=== PATIENT | female | born 1985 | race Caucasian/White ===

== ENCOUNTER 2017-02-04 15:16 | Inpatient (IN) | payer MEDICAID ==
[2017-02-04] MEDS ORDERED: HYDROmorphONE/DILAUDID 1 MG/ML SYR ONE (15:22)
--- NOTE | 2017-02-04 15:29 | EDPHY ---
H & P Stated Complaint: abdominal pain Time Seen by Provider: 02/04/17 15:27 HPI/ROS: CHIEF COMPLAINT: abdominal pain HISTORY OF PRESENT ILLNESS: 31-year-old female presents emergency department by EMS sent from [facility]. Patient had onset of worsening lower abdominal pain just after intercourse this morning after she urinated, cramping in nature, she presented to the emergency department, had a CT scan abdomen pelvis with IV contrast showing an abnormality in the right adnexal region with a heterogeneous masslike area measuring up to 3.6cm. There is no ultrasound available at the [facility] so the patient was transferred here via EMS. Patient has an IUD. Patient reports she started 2 days ago with mild lower abdominal pain that increased slightly yesterday and then increased significantly today. No fevers, no diarrhea, no nausea or vomiting. She reports no known history of ovarian cysts. Patient reports a cervical cyst removal and leep procedure in 2004. Patient denies vaginal discharge, no vaginal bleeding, no fevers, no nausea or vomiting, no back pain. REVIEW OF SYSTEMS: A comprehensive 10 point review of systems is otherwise negative aside from elements mentioned in the history of present illness. Source: Patient, RN/MD, EMS - Personal History LMP (Females 10-55): IUD In Place - Physical Exam Exam: Physical Exam Gen: Alert and Oriented, grimacing HEENT: PERRL, moist mucous membranes NECK: no meningismus CV: regular rate and regular rhythm PULM: CTAB, no wheezes ABDOMEN: soft, right sided lower abdominal tenderness to palpation with voluntary guarding. BS present BACK: No CVA tenderness NEURO: Neurologically grossly intact EXTREMITIES: normal appearing SKIN: no rash or break in skin on exposed skin PSYCH: answers questions appropriately. Constitutional: Initial Vital Signs Temperature (C) 36.9 C 02/04/17 15:41 Heart Rate 50 L 02/04/17 15:41 Respiratory Rate 14 02/04/17 15:41 Blood Pressure 96/54 L 02/04/17 15:41 O2 Sat (%) 100 02/04/17 15:41 O2 Delivery Mode Nasal Cannula O2 (L/minute) 2 Allergies/Adverse Reactions: cocoa [chocolate] Allergy (Verified 02/04/17 15:41) Medical Decision Making ED Course/Re-evaluation: Patient presents from [facility] for evaluation for abdominal pain. He had no ultrasound in this facility and CT shows a adnexal mass. Patient presents by ambulance to room 7, she is grimacing and tearful complaining of 9/10 pain. She received 75 mcg of fentanyl in the ambulance and 8 mg of Zofran. Patient in [facility] received a mg of Dilaudid , 30 mg of Toradol. CBC at 8:45 a.m. reveals a hemoglobin of 14.9 and hematocrit of 42.9, platelets of [address]. Chemistry panel is unremarkable and she had a new negative serum qualitative HCG. On arrival to the emergency department a 2nd IV is started, the patient is given Dilaudid for her pain. Her blood pressure continues 90s over 60s with a heart rate in the 50s. Pelvic Ultrasound has been ordered along with a repeat CBC. Repeat hemoglobin is 11.1 with a hematocrit of 31.8. This is down from 14.9 and 42.9. Type and screen has been ordered. 505pm- Dr. Worthington with OBGYN was consulted. She will review the images and come see the patient. Patient continues with a blood pressure in the high 80s over 50s, current heart rate is 55. 525pm- Dr. Worthington at bedside and is going to take the patient to the operating room now. Differential Diagnosis: Diagnosis considered but not limited to ruptured ovarian cyst, appendicitis, tubo-ovarian abscess, ectopic , ovarian torsion. - Data Points Laboratory Results: Laboratory Results 02/04/17 15:30 02/04/17 02/04/17 02/04/17 16:12 16:12 15:39 WBC RBC Hgb Hct MCV MCH MCHC RDW Plt Count MPV Neut % (Auto) Lymph % (Auto) [place] % (Auto) Eos % (Auto) Baso % (Auto) Nucleat RBC Rel Count Absolute Neuts (auto) Absolute Lymphs (auto) Absolute Monos (auto) Absolute Eos (auto) Absolute Basos (auto) Absolute Nucleated RBC Immature Gran % Immature Gran # Urine Color YELLOW Urine Appearance HAZY Urine pH 6.0 (5.0-7.5) Ur Specific [place] > 1.035 H (1.002-1.030) Urine Protein NEGATIVE (NEGATIVE) Urine Ketones TRACE H (NEGATIVE) Urine Blood NEGATIVE (NEGATIVE) Urine Nitrate NEGATIVE (NEGATIVE) Urine Bilirubin NEGATIVE (NEGATIVE) Urine Urobilinogen NEGATIVE EU EU (0.2-1.0) Ur Leukocyte Esterase TRACE H (NEGATIVE) Urine RBC 3-5 /hpf H /hpf (0-3) Urine WBC 3-5 /hpf H /hpf (0-3) Ur Epithelial Cells 2+ /lpf H /lpf (NONE-1+) Urine Bacteria TRACE /hpf H /hpf (NONE SEEN) Urine Mucus TRACE /lpf /lpf (NONE-1+) Ur Culture Indicated? INDICATED H (NI) Urine Glucose NEGATIVE (NEGATIVE) Urine Test Pending Patient ABO/Rh O POSITIVE Antibody Screen NEGATIVE 02/04/17 15:30 WBC 7.88 10^3/uL 10^3/uL (3.80-9.50) RBC 3.48 10^6/uL L 10^6/uL (4.18-5.33) Hgb 11.0 g/dL L g/dL (12.6-16.3) Hct 31.8 % L % (38.0-47.0) MCV 91.4 fL fL (81.5-99.8) MCH 31.6 pg pg (27.9-34.1) MCHC 34.6 g/dL g/dL (32.4-36.7) RDW 12.9 % % (11.5-15.2) Plt Count 189 10^3/uL 10^3/uL (150-400) MPV 10.3 fL fL (8.7-11.7) Neut % (Auto) 72.0 % % (39.3-74.2) Lymph % (Auto) 21.7 % % (15.0-45.0) [place] % (Auto) 4.8 % % (4.5-13.0) Eos % (Auto) 0.9 % % (0.6-7.6) Baso % (Auto) 0.3 % % (0.3-1.7) Nucleat RBC Rel Count 0.0 % % (0.0-0.2) Absolute Neuts (auto) 5.68 10^3/uL 10^3/uL (1.70-6.50) Absolute Lymphs (auto) 1.71 10^3/uL 10^3/uL (1.00-3.00) Absolute Monos (auto) 0.38 10^3/uL 10^3/uL (0.30-0.80) Absolute Eos (auto) 0.07 10^3/uL 10^3/uL (0.03-0.40) Absolute Basos (auto) 0.02 10^3/uL 10^3/uL (0.02-0.10) Absolute Nucleated RBC 0.00 10^3/uL 10^3/uL (0-0.01) Immature Gran % 0.3 % % (0.0-1.1) Immature Gran # 0.02 10^3/uL 10^3/uL (0.00-0.10) Urine Color Urine Appearance Urine pH Ur Specific [place] Urine Protein Urine Ketones Urine Blood Urine Nitrate Urine Bilirubin Urine Urobilinogen Ur Leukocyte Esterase Urine RBC Urine WBC Ur Epithelial Cells Urine Bacteria Urine Mucus Ur Culture Indicated? Urine Glucose Urine Test Patient ABO/Rh Antibody Screen Medications Given: Discontinued Medications Hydromorphone HCl (Dilaudid) 0.5 mg IVP EDNOW ONE Stop: 02/04/17 15:46 Last Admin: 02/04/17 15:45 Dose: 0.5 mg Hydromorphone HCl (Dilaudid) 0.5 mg IVP EDNOW ONE Stop: 02/04/17 16:01 Last Admin: 02/04/17 16:44 Dose: 0.5 mg Departure - Departure Disposition: To OP Cath/Surgery Clinical Impression: Hemorrhagic ovarian cyst Condition: Fair Referrals: Patient,NotPresent [Unknown] - As per Instructions
[2017-02-04] MEDS ORDERED: HYDROmorphONE/DILAUDID 1 MG/ML SYR IVP ONE ×2 (15:45→16:00)
[2017-02-04 16:11] LABS: % IMMATURE GRANULYOCYTES 0.3 % (0.0-1.1); ABSOLUTE IMMATURE GRANULOCYTES 0.02 10^3/uL (0.00-0.10); ADD DIFF? NO; ADD MORPH? NO; ADD SCAN? NO; ATYPICAL LYMPHOCYTE FLAG 0 (0-99); FRAGMENT RBC FLAG 0 (0-99); HEMATOCRIT 31.8 % (38.0-47.0); LEFT SHIFT FLG 0 (0-99); LIPEMIA HEMOLYSIS FLAG 90 (0-99); MEAN CELL HEMOGLOBIN 31.6 pg (27.9-34.1); MEAN CELL HEMOGLOBIN CONCENTR. 34.6 g/dL (32.4-36.7); MEAN CELL VOLUME 91.4 fL (81.5-99.8); MEAN PLATELET VOLUME 10.3 fL (8.7-11.7); PLATELET CLUMPS FLAG 0 (0-99); PLATELET COUNT 189 10^3/uL (150-400); RED BLOOD CELL COUNT 3.48 10^6/uL (4.18-5.33); RED CELL DISTRIBUTION WIDTH 12.9 % (11.5-15.2)
[2017-02-04 16:21] LABS: COLOR YELLOW; LEUKOCYTE ESTERASE,URINE TRACE (NEGATIVE); NITRITE,URINE NEGATIVE (NEGATIVE)
[2017-02-04 16:34] LABS: BACTERIA TRACE /hpf (NONE SEEN); MUCUS TRACE /lpf (NONE-1+)
--- NOTE | 2017-02-04 17:37 | PDCONSULT ---
Barrel Raiser Helper Note: Consult: ED Reason for consult: Ruptured hemorrhagic ovarian cyst HPI: Pt is a healthy 31 yo ( x 5) who was transferred from [place] with abdominal pain and free fluid seen on CT scan concerning for ruptured cyst. She had some abdominal discomfort the last 2 days, then had intercourse this morning about 0730, went to the bathroom afterwards and was doubled over in pain. Has continued to get worse and worse throughout the day. She is very nauseated. In the ED here she had an US that shows free fluid in the the pelvis and a possible right ovarian cyst. Her initial Hgb was 14 but has dropped to 11 on repeat check. Her initial BP was in the 110s/90s, but has dropped to 90s/60s and now 80s/60. Her pulse is in the 50s. She has received 2 liters IVF. She states she gets her menses about every other month. A test today was negative. She has paragard IUD PMH: None PSH: LEEP for "cervical cancer" and vaginal cyst removal. No abdominal surgeries [employer] Member: x 5. Denies h/o PID Meds: None All: cocoa Soc: MJ use, no tob or alcohol FH: non contributory Vitals: Pulse = 50, BP 88/60 Gen: discomfort, writhing in bed Resp: taking shallow breaths CV: bradycardia Abd: slightly distended, very TTP with gentle palpation throughout abdomen, + rebound/guarding Ext: no edema US: Transvaginal imaging: The ovaries are normal size with small peripheral follicles and normal blood flow on color Doppler imaging. Several dominant follicles are present in the right ovary. No ovarian cyst. The right ovary measures 4.0 x 3.6 x 3.3 cm. The left ovary measures 3.6 x 2.0 x 1.7 cm. The uterus has normal homogeneous myometrium. A T-shaped intrauterine device is well positioned high within the endometrial cavity. Endometrial lining is normal thickness (0.8 cm). No uterine leiomyomas. Small volume of free fluid in the pelvis anterior and posterior to the uterus has mobile internal echoes suggestive of hemoperitoneum. Amorphous soft tissue posterior to the uterus has no internal blood flow and likely represents small element of organized clot. Impression: 1. Small volume hemoperitoneum and probable clot in the cul-de-sac. Suspect ruptured ovarian follicle as source of blood. 2. No ovarian cyst or evidence of torsion. 3. Well positioned intrauterine device. A/P: Likely ruptured hemorrhagic ovarian cyst. No e/o infection, torsion, ectopic , PID. Her US does not show a large amount of free fluid, but given the fact her BP is dropping and she has a surgical abdomen on exam recommend to proceed with diagnostic laparoscopy and possible right ovarian cystectomy vs oophorectomy. Also discussed observation but she prefers to proceed with diagnostic laparoscopy given her level of discomfort. Reviewed risks including pain, infection, bleeding, transfusion, injury to other organs, needs for additional surgeries. She agrees to proceed. Consents signed. Has been NPO since last night T&S completed No abx indicated OR and anesthesia aware Home vs admit after procedure depending on her pain control Ena Worthington MD Comparative Sociology Professor [facility]
[2017-02-04] MEDS ORDERED: MIDAZOLAM 2 MG/2 ML VIAL ONE (17:44)
[2017-02-04] MEDS ORDERED: REMIFENTANIL HCL 1 MG VIAL ONE (17:50)
[2017-02-04] MEDS ORDERED: PROPOFOL/EMULSION 500 MG/50 ML BOTTLE IV ONE (17:50)
[2017-02-04] MEDS ORDERED: LIDOCAINE HCL 160 MG/4 ML LTA KIT TP ONE (17:51)
[2017-02-04] MEDS ORDERED: SKIN ADHESIVE (DERMABOND) 1 EACH TP ONE (17:51)
[2017-02-04] MEDS ORDERED: ROCURONIUM 50 MG/5 ML VIAL ONE (17:51)
[2017-02-04] MEDS ORDERED: ONDANSETRON 4 MG/2 ML VIAL ONE ×2 (17:51→19:30)
[2017-02-04] MEDS ORDERED: LIDOCAINE 2% 100 MG/5 ML SYR ONE (17:51)
[2017-02-04] MEDS ORDERED: DEXAMETHASONE 4 MG/ML VIAL ONE (17:51)
[2017-02-04] MEDS ORDERED: BUPIVACAINE 0.25% 30 ML SDV ONE (17:52)
[2017-02-04] MEDS ORDERED: LR 1,000 ML IV SCH ×2 (18:00→20:00)
[2017-02-04] MEDS ORDERED: epHEDrine SULFATE 10 MG/ML SYR ONE ×2 (18:18)
[2017-02-04] MEDS ORDERED: SURGIFLO MATRIX KIT WITH THROMBIN TP ONE (18:54)
[2017-02-04] MEDS ORDERED: hydrALAZINE 20 MG/ML VIAL ONE (19:04)
[2017-02-04] MEDS ORDERED: SUGAMMADEX SODIUM 200 MG/2 ML VIAL IVP ONE (19:05)
[2017-02-04] MEDS ORDERED: fentaNYL 100 MCG/2 ML INJ ONE (19:25)
[2017-02-04] MEDS ORDERED: ONDANSETRON 4 MG/2 ML VIAL IVP PRN (19:36)
[2017-02-04] MEDS ORDERED: IBUPROFEN 600 MG TAB PO PRN (19:36)
[2017-02-04] MEDS ORDERED: KETOROLAC 30 MG/1 ML SDV ONE (19:40)
[2017-02-04] MEDS ORDERED: KETOROLAC 30 MG/1 ML SDV IVP ONE (19:40)
--- NOTE | 2017-02-04 19:52 | GOP ---
[f rep st] OPERATIVE REPORT DATE OF OPERATION: 02/04/2017 SURGEON: Ena Worthington MD Duck Bill Operator: Keyona Doty RN ANESTHESIA: General with ET tube. ANESTHESIOLOGIST: Dion Estrada MD. PREOPERATIVE DIAGNOSIS: Ruptured hemorrhagic right ovarian cyst. POSTOPERATIVE DIAGNOSIS: Ruptured hemorrhagic right ovarian cyst. PROCEDURE PERFORMED: 1. Diagnostic laparoscopy. 2. Removal of hemoperitoneum. 3. Right ovarian cystectomy. FINDINGS: Approximately 150 mL of blood in the cul-de-sac and pelvis which was evacuated. A small right cyst on the right ovary that appeared physiologic that had ongoing oozing of bright-red blood. SPECIMENS: Right ovarian cyst wall. ESTIMATED BLOOD LOSS: Minimal. INDICATIONS: The patient is a 31-year-old G5, P5-0-0-5 who had sudden sharp lower abdominal pain this morning after intercourse. She was initially seen in [place] emergency room and had a CT scan that demonstrated a likely right ovarian cyst and also free fluid in the pelvis. Her hemoglobin at that time was 14. She was transferred to [facility] Emergency Room. She had a pelvic ultrasound which showed ongoing free fluid in the pelvis , and her hemoglobin dropped to 11, and her blood pressure dropped to 80s over 50s, and she was in significant pain so the decision was made to go back and proceed with diagnostic laparoscopy for presumed ruptured hemorrhagic cyst. DESCRIPTION OF PROCEDURE: The patient was brought to the operating room, and a time-out was performed. General anesthesia with ET tube was induced without complication. She was prepped and draped in the normal sterile fashion in dorsal lithotomy with Drew stirrups and with arms tucked. A Choudhury catheter was placed. The umbilicus was injected with 5 mL of 0.25% Marcaine. A 5 mm incision was made with a scalpel. The skin was lifted, and the Veress needle was inserted. The opening pressure was 2 mmHg. The abdomen was then insufflated to 15 mmHg. The 5 mm 0 degree laparoscope was placed. The above findings were noted. Two additional 5 mm ports were placed in the right and left lower quadrants respectively after injecting Marcaine. All the blood was evacuated using suction associate professor of music. It was noted that the right ovarian cyst had ongoing bleeding. The capsule of the ovary over the cyst was opened using the laparoscopic monopolar Bovie. The cyst wall was then removed. The cut edges of the ovary were cauterized, and then Surgiflo was applied. No further bleeding was noted, including as pressure was released from the abdomen. All instruments were removed. The umbilical incision was closed with 4-0 Monocryl and then covered by Dermabond. The other 2 incisions were closed with Dermabond. The patient was awakened in good condition and brought to the recovery room. Counts were correct x2. A neurosurgical physician assistant was medically indicated for this emergent laparoscopic procedure. COMPLICATIONS: None. URINE: 50 mL. FLUIDS: 1300 mL crystalloid. /[id number]/MODL MTDD
[2017-02-04 20:07] LABS: HEMOGLOBIN 10.4 g/dL (12.6-16.3)
[2017-02-04] MEDS: HYDROCODONE/APAP 5/325 TAB PO PRN (20:35)
[2017-02-04] MEDS ORDERED: LORazepam 2 MG/ML INJ IVP ONE (23:38)
[2017-02-05 00:25] LABS: HEMATOCRIT 32.5 % (38.0-47.0); HEMOGLOBIN 11.1 g/dL (12.6-16.3)
[2017-02-05] MEDS: HYDROCODONE/APAP 5/325 TAB PO PRN (05:10)
[2017-02-05 06:27] LABS: HEMATOCRIT 31.4 % (38.0-47.0)
--- NOTE | 2017-02-05 11:02 | SOAPPROG ---
SOAP Progress Note Assessment/Plan: Assessment: POD#1 s/p dx lsc, right ovarian cystectomy for ruptured hemorrhagic ovarian cyst (right) Stable Hct, no e/o ongoing intrabdominal bleeding Recovering slowly, still with pain control and nausea issues Hemodynamically stable Plan: Continue observation Trial abd binder Trial tramadol and ibuprofen as too sleepy with norco and may be contributing to her nausea Expect home tonight or tomorrow 02/05/17 11:01 Subjective: Still very nauseous, tried to eat some jello but felt she would be sick. Pain is much better, but after taking norco she fell asleep immediately for about 5 hours so she thinks it is too strong. Choudhury was removed and she is up and ambulating and able to void. Scant vaginal bleeding Objective: Vital Signs Temp Pulse Resp BP Pulse Ox 36.8 C 46 L 16 85/44 L 100 02/05/17 08:00 02/05/17 08:00 02/05/17 08:00 02/05/17 08:00 02/05/17 08:00 Laboratory Results 02/05/17 06:15 02/04/17 02/05/17 02/06/17 05:59 05:59 05:59 Intake Total 2600 Output Total 775 700 Balance 1825 -700 Gen: alert, awake, AOx4 Resp: unlabored CV: stable bradycardia, regular Abd: Inicisions c/d/i, soft, nondistended, appropriately tender Ext: no edema ICD10 Worksheet Patient Problems: Problems Problem Status Onset Hemorrhagic ovarian cyst Acute
[2017-02-05] MEDS ORDERED: ONDANSETRON 0.8 MG/ML UDSYR PO PRN (16:06)
--- NOTE | 2017-02-05 16:24 | SOAPPROG ---
SOAP Progress Note Assessment/Plan: Assessment: POD#1 s/p dx lsc, right ovarian cystectomy for ruptured hemorrhagic ovarian cyst Stable Hct, no e/o ongoing intrabdominal bleeding Recovering slowly, still with pain control and nausea issues Hemodynamically stable Plan: Pt to stay overnight She hasn't yet taken any tramadol as she was worried about side effects so she will try that now along with reglan Ambulate with assistance reevaluate for discharge tomorrow as she is not yet meeting milestones 02/05/17 11:01 02/05/17 16:22 Subjective: Still feeling nauseous. Previously declined antiemetic but now wants to try. Still getting waves of cramping pain. Was able to ambulate to bathroom and void but felt dizzy, now feeling better that she is back in bed. Is only tolerating small bites of food. Objective: Vital Signs Temp Pulse Resp BP Pulse Ox 37.1 C 54 L 18 91/47 L 98 02/05/17 15:39 02/05/17 15:39 02/05/17 15:39 02/05/17 15:39 02/05/17 15:39 Laboratory Results 02/05/17 06:15 02/04/17 02/05/17 02/06/17 05:59 05:59 05:59 Intake Total 2600 Output Total 775 1300 Balance 1825 -1300 Gen: alert, awake, NAD Abd: incisions c/d/i with dermabond. Slightly distended, soft, TTP in lower abdomen, no rebound/guarding Ext: no edema ICD10 Worksheet Patient Problems: Problems Problem Status Onset Hemorrhagic ovarian cyst Acute
[2017-02-05] MEDS: METOCLOPRAMIDE 10 MG TAB PO PRN (16:36)
[2017-02-05] MEDS: traMADol 50 MG TAB PO PRN (16:36)
[2017-02-06 04:22] VITALS: O2SAT 94
[2017-02-06 08:32] VITALS: BP 107/60; PULSE 56; RESP 16; TEMP 98.1
--- NOTE | 2017-02-06 09:40 | GDS ---
[f rep st] DISCHARGE SUMMARY ADMISSION DIAGNOSIS: Ruptured hemorrhagic ovarian cyst. DISCHARGE DIAGNOSIS: Ruptured hemorrhagic ovarian cyst. PROCEDURES: Diagnostic laparoscopy, right ovarian cystectomy. CONSULTS: Anesthesia. COMPLICATIONS: None. HOSPITAL COURSE: On 02/04/2017, the patient had new severe lower abdominal pain , and presented to the emergency room in [place]. CT scan was done showing free fluid and evidence of a right ovarian cyst. She was hemodynamically stable , and she was transferred to [facility] Emergency Room, where an ultrasound was done confirming the same findings. As she was in significant pain and there was free fluid noted, the decision was made to proceed with diagnostic laparoscopy for presumed ruptured hemorrhagic ovarian cyst. This was confirmed at the time of surgery. Hemoperitoneum was evacuated, and a right ovarian cystectomy was performed. There were no complications. There was about 150 ml of blood evacuated, with minimal surgical EBL. Postoperatively , the patient initially had issues with pain control and nausea. However, by postoperative day 2 these symptoms had completely resolved. She had good pain control with use of tramadol and ibuprofen, and her nausea was resolved with p.o. Reglan. Her hemoglobin was stable at 11 postoperatively on multiple checks. On postoperative day #2, she was meeting all milestones for discharge, including tolerating a regular diet. Pain controlled with oral medications. Ambulating and voiding spontaneously and passing flatus. She was discharged home. DISCHARGE MEDICATIONS: Tramadol 50 mg p.o. q.6 hours p.r.n., Reglan 10 mg p.o. q.6 hours p.r.n., ibuprofen 600 mg p.o. q.6 hours p.r.n. DISCHARGE INSTRUCTIONS: No heavy lifting x2 weeks. Pelvic rest for 2 weeks. No driving for 2 weeks. She was given instructions to call for worsening pain, fevers, chills, nausea, vomiting, or bleeding. Follow up with Dr. Worthington in the office in 2 weeks. /[id number]/MODL MTDD
[2017-02-06] MEDS: traMADol 50 MG TAB PO PRN (11:39)
[2017-02-06] MEDS: METOCLOPRAMIDE 10 MG TAB PO PRN (11:39)
== END 2017-02-06 11:42 | disposition home or self-care (01) | DRG 743 ==
LOC: EDUNIT# → EDBD → INTOOBSV 17:24 → F3N 20:13 → OBSVTOIN 02-05 16:24
PROVIDERS: ADMIT Obstetrics & Gynecology; ATTEND Obstetrics & Gynecology
PROC: 0UB04ZX Excision of Right Ovary, Percutaneous Endoscopic Approach, Diagnostic (ICD-10-PCS; principal; 2017-02-03)
DX: N83.01 Follicular cyst of right ovary (principal)
CPT/HCPCS: 96374; G0378; J0360; J1100; J1170; J1885; J2001; J2060; J2250; J2405; J2704; J3010